=== PATIENT | female | born 1950 | race Caucasian/White ===

== ENCOUNTER 2016-08-09 08:00 | Outpatient (CLI) | payer BC | END 2016-08-09 18:54 | disposition home or self-care (01) | LOC: SUS 08:00 | PROVIDERS: ATTEND Specialist | DX: N60.01 Solitary cyst of right breast (principal); N63 Unspecified lump in breast | CPT/HCPCS: 76642 ==

== ENCOUNTER 2017-02-01 07:39 | Outpatient (CLI) | payer BC | END 2017-02-01 20:08 | disposition home or self-care (01) | LOC: SMA 07:39 | PROVIDERS: ATTEND Specialist | DX: Z12.31 Encounter for screening mammogram for malignant neoplasm of breast (principal) | CPT/HCPCS: G0202 ==

== ENCOUNTER 2018-02-18 08:10 | Outpatient (CLI) | payer BC | END 2018-02-18 20:53 | disposition home or self-care (01) | LOC: SMA 08:10 | PROVIDERS: ATTEND Specialist | DX: Z12.31 Encounter for screening mammogram for malignant neoplasm of breast (principal) | CPT/HCPCS: 77067 ==

== ENCOUNTER 2019-04-07 09:18 | Outpatient (CLI) | payer OTHER, MEDICARE | END 2019-04-07 19:31 | disposition home or self-care (01) | LOC: SMA 09:18 | PROVIDERS: ATTEND Specialist | DX: Z12.31 Encounter for screening mammogram for malignant neoplasm of breast (principal) | CPT/HCPCS: 77067 ==

== ENCOUNTER 2020-04-20 09:35 | Outpatient (CLI) | payer OTHER, MEDICARE | END 2020-04-20 18:53 | disposition home or self-care (01) | LOC: SMA 09:35 | PROVIDERS: ATTEND Physician Assistant | DX: Z12.31 Encounter for screening mammogram for malignant neoplasm of breast (principal) | CPT/HCPCS: 77067 ==